=== PATIENT | male | born 1940 | race Caucasian/White ===

== ENCOUNTER → 2018-12-05 | Outpatient (CLI) | payer MEDICARE ==
[~2018-12-05] MED LIST: REGADENOSON 0.4 MG/5 ML SYRINGE ONE
== END | disposition home or self-care (01) ==
LOC: CFH 08:21
PROVIDERS: ATTEND Family Medicine
DX: R94.31 Abnormal electrocardiogram [ECG] [EKG] (principal); I48.0 Paroxysmal atrial fibrillation
CPT/HCPCS: 78452; 93017; A9502; J2785

== ENCOUNTER 2019-10-05 03:54 | Inpatient (IN) | payer MEDICARE ==
[~2019-10-05] VITALS: Ht 193 cm; Wt 70.6 kg
[~2019-10-05 03:54] MED LIST changes: +ACET325T21 PO; +AMLO-150 PO; +AMOX1TAB12 PO; +ATOR40TA78 PO; +CALC500T11 PO; +DOCU-131 PO; +FLEC150T PO; +FURO20TA3 PO; +HYDR-3240 PO; +LISI-167 PO; +LISI40TA PO; +MAGN400T50 PO; +METO25TA35 PO; +MISO200T PO; +OMEP-110 PO; +PHOS250T3 PO; +POTA20TA6 PO; -REGADENOSON 0.4 MG/5 ML SYRINGE ONE; +TAMS-11 PO; +TRIA1TAB3 PO; +WARF2.5T32 PO; +ZONI100C2 PO
[2019-10-05 04:29] LABS: BASOPHILS # (AUTO) 0.03 x10^3/uL (0-0.1); BASOPHILS % (AUTO) 0 % (0-1); EOSINOPHILS # (AUTO) 0.34 x10^3/uL (0-0.4); EOSINOPHILS % (AUTO) 3 % (1-7); LYMPHOCYTES # (AUTO) 1.35 x10^3/uL (1-3.4); LYMPHOCYTES % (AUTO) 12 % (22-44); MD NO; MEAN CORPUSCULAR HEMOGLOBIN 28.9 pg (27.5-34.5); MEAN CORPUSCULAR HGB CONC 32.8 g/dL (33.2-36.2); MEAN PLATELET VOLUME 9.9 fL (7.4-10.4); MONOCYTES # (AUTO) 0.94 x10^3/uL (0.2-0.8); MONOCYTES % (AUTO) 8 % (2-9); NEUTROPHILS # (AUTO) 8.94 x10^3/uL (1.8-6.8); NEUTROPHILS % (AUTO) 77 % (42-75); PLATELET COUNT 127 x10^3/uL (130-400); RED BLOOD COUNT 5.16 x10^6/uL (4.38-5.82); RED CELL DISTRIBUTION WIDTH 12.8 % (9.4-14.8)
[2019-10-05 04:38] LABS: ALBUMIN 3.3 g/dL (3.4-5.0); ANION GAP 8 mmol/L (5-15); CALCIUM 8.4 mg/dL (8.5-10.1); CHLORIDE 102 mmol/L (98-107)
[2019-10-05] MEDS ORDERED: METHOCARBAMOL 750 MG TABLET PO ONE (05:00)
[2019-10-05] MEDS ORDERED: OXYcodone/APAP 5/325MG TABLET PO ONE (05:00)
[2019-10-05] MEDS ORDERED: OXYcodone/APAP 5/325MG TABLET ONE (05:01)
[2019-10-05] MEDS ORDERED: METHOCARBAMOL 750 MG TABLET ONE (05:01)
--- NOTE | 2019-10-05 05:08 | NUR ---
PT BIB EMS WITH C/O HIP PAIN. PT REPORTS FALL DOWN X1 FLIGHT OF STAIRS SATURDAY. PT REPORTS HE HIT HIS HEAD, NO LOC, OR BLEEDING. STATES HE HASNT BEEN ABLE TO WALK SINCE SATURDAY. REPORTS 10/10 HIP PAIN, WITH BODY ACHES. PT DENIES ANY OTHER C/O AT THIS TIME. ALL MONITORING IN PLACE, CALL LIGHT WITHIN REACH. PT PROVIDED BLANKETS FOR COMFORT. MEDICATED PER DEC. IMAGING AND LABS PERFORMED, AWAITING IMAGING READ.
--- NOTE | 2019-10-05 06:02 | NUR ---
PT RESTING ON GURNEY, REPORTS DECREASED PAIN POST MEDICATION. PT DENIES ANY NEEDS AT THIS TIME.
--- NOTE | 2019-10-05 06:50 | NUR ---
REPORT GIVEN TO [facility]. PT [facility]ING [place] [facility], UPDATED ON POC. CALL LIGHT WITHIN REACH, MONITORING IN PLACE, ALL SAFETY MEASURES IN PLACE.
--- NOTE | 2019-10-05 07:58 | NUR ---
PER DR PERAZA PT TO BE ADMITED. WILL HAVE CT PRIOR TO ADMIT. I SPOKE WITH PT SONS AND INFORMED HIM PER PT REQUEST. PT VSS, CALL LIGHT W/I REACH
[2019-10-05] MEDS ORDERED: METHOCARBAMOL 750 MG TABLET PO SCH (12:00)
[2019-10-05] MEDS ORDERED: OXYcodone/APAP 5/325MG TABLET PO PRN (12:00)
[2019-10-05 12:34] LABS: MICROSCOPIC INDICATED
[2019-10-05 12:55] LABS: CULTURE INDICATED? YES
[2019-10-05 12:58] VITALS: BP 174/73
[2019-10-05] MEDS ORDERED: LABETALOL 5MG/ML, 20ML IVPush PRN (14:00)
[2019-10-05] MEDS ORDERED: ONDANSETRON ODT 4 MG PO PRN (14:00)
[2019-10-05] MEDS ORDERED: hydrALAzine 20 MG/ML, 1ML IVPush PRN (14:00)
[2019-10-05] MEDS ORDERED: BISACODYL 10 MG SUPP PR PRN (14:00)
[2019-10-05] MEDS ORDERED: LIDODERM 5% PATCH TD PRN (14:00)
[2019-10-05] MEDS ORDERED: ONDANSETRON 2MG/ML, 2ML IVPush PRN (14:00)
[2019-10-05] MEDS: ZONISAMIDE 50 MG CAPSULE PO SCH (15:43)
[2019-10-05] MEDS: NS + 20MEQ KCL 1,000 ML IV SCH ×2 (15:43→23:59)
[2019-10-05] MEDS: METOPROLOL TARTRATE 25 MG TABLET PO SCH (18:13)
[2019-10-05] MEDS: OXYcodone/APAP 5/325MG TABLET PO PRN (18:13)
[2019-10-05] MEDS: HEPARIN 5,000 UNITS/ML, 1ML SQ SCH (18:21)
[2019-10-05 18:49] VITALS: BP 135/69
[2019-10-05] MEDS: ATORVASTATIN 40 MG TABLET PO SCH (20:16)
[2019-10-05] MEDS: METHOCARBAMOL 750 MG TABLET PO PRN (20:24)
[2019-10-05] MEDS: morphine SULFATE 10 MG/ML, 1ML IVPush PRN (23:59)
[2019-10-06 00:30] VITALS: BP 144/71
[2019-10-06] MEDS: HEPARIN 5,000 UNITS/ML, 1ML SQ SCH ×3 (03:57→20:27)
[2019-10-06] MEDS: METHOCARBAMOL 750 MG TABLET PO PRN ×2 (05:16→17:32)
[2019-10-06] MEDS: METOPROLOL TARTRATE 25 MG TABLET PO SCH ×2 (05:16→17:34)
[2019-10-06] MEDS: OXYcodone/APAP 5/325MG TABLET PO PRN ×2 (05:17→17:34)
[2019-10-06] MEDS: OMEPRAZOLE 20 MG CAPSULE.DR PO SCH (05:18)
[2019-10-06 05:50] LABS: BASOPHILS # (AUTO) 0.06 x10^3/uL (0-0.1); BASOPHILS % (AUTO) 1 % (0-1); EOSINOPHILS # (AUTO) 0.84 x10^3/uL (0-0.4); EOSINOPHILS % (AUTO) 8 % (1-7); LYMPHOCYTES # (AUTO) 2.44 x10^3/uL (1-3.4); LYMPHOCYTES % (AUTO) 24 % (22-44); MD NO; MEAN CORPUSCULAR HEMOGLOBIN 29.5 pg (27.5-34.5); MEAN CORPUSCULAR HGB CONC 32.6 g/dL (33.2-36.2); MEAN CORPUSCULAR VOLUME 90.5 fL (81-97); MEAN PLATELET VOLUME 10.4 fL (7.4-10.4); MONOCYTES # (AUTO) 1.11 x10^3/uL (0.2-0.8); MONOCYTES % (AUTO) 11 % (2-9); NEUTROPHILS # (AUTO) 5.84 x10^3/uL (1.8-6.8); NEUTROPHILS % (AUTO) 57 % (42-75); PLATELET COUNT 118 x10^3/uL (130-400); RED BLOOD COUNT 4.32 x10^6/uL (4.38-5.82); RED CELL DISTRIBUTION WIDTH 13.3 % (9.4-14.8)
[2019-10-06 05:54] LABS: ALANINE AMINOTRANSFERASE 21 U/L (12-78); ALBUMIN 2.6 g/dL (3.4-5.0); ANION GAP 5 mmol/L (5-15); CHLORIDE 108 mmol/L (98-107); CREATININE 1.33 mg/dL (0.7-1.3)
[2019-10-06 05:57] LABS: ALKALINE PHOSPHATASE 105 U/L (45-117); BILIRUBIN,TOTAL 1.3 mg/dL (0.2-1.0); TOTAL PROTEIN 5.5 g/dL (6.4-8.2)
[2019-10-06 07:06] VITALS: BP 116/64
[2019-10-06] MEDS: NS + 20MEQ KCL 1,000 ML IV SCH ×2 (08:03→17:32)
[2019-10-06] MEDS: morphine SULFATE 10 MG/ML, 1ML IVPush PRN ×3 (08:04→23:27)
[2019-10-06] MEDS: ZONISAMIDE 50 MG CAPSULE PO SCH (08:04)
[2019-10-06 12:59] VITALS: BP 132/76
[2019-10-06 19:33] VITALS: BP 156/71
[2019-10-06] MEDS: ATORVASTATIN 40 MG TABLET PO SCH (20:27)
[2019-10-07 01:46] VITALS: BP 152/70
[2019-10-07] MEDS: OXYcodone/APAP 5/325MG TABLET PO PRN ×4 (05:30→20:11)
[2019-10-07] MEDS: METHOCARBAMOL 750 MG TABLET PO PRN (05:30)
[2019-10-07] MEDS: OMEPRAZOLE 20 MG CAPSULE.DR PO SCH (05:31)
[2019-10-07] MEDS: METOPROLOL TARTRATE 25 MG TABLET PO SCH ×2 (05:31→17:52)
[2019-10-07] MEDS: HEPARIN 5,000 UNITS/ML, 1ML SQ SCH ×3 (05:31→20:04)
[2019-10-07] MEDS: DOCUSATE 100 MG CAPSULE PO PRN (05:36)
[2019-10-07 06:03] LABS: BASOPHILS # (AUTO) 0.03 x10^3/uL (0-0.1); BASOPHILS % (AUTO) 0 % (0-1); EOSINOPHILS # (AUTO) 0.72 x10^3/uL (0-0.4); EOSINOPHILS % (AUTO) 7 % (1-7); LYMPHOCYTES # (AUTO) 1.33 x10^3/uL (1-3.4); LYMPHOCYTES % (AUTO) 13 % (22-44); MD NO; MEAN CORPUSCULAR HEMOGLOBIN 29.2 pg (27.5-34.5); MEAN CORPUSCULAR HGB CONC 32.5 g/dL (33.2-36.2); MEAN PLATELET VOLUME 10.7 fL (7.4-10.4); MONOCYTES # (AUTO) 0.99 x10^3/uL (0.2-0.8); MONOCYTES % (AUTO) 10 % (2-9); NEUTROPHILS # (AUTO) 7.34 x10^3/uL (1.8-6.8); NEUTROPHILS % (AUTO) 71 % (42-75); PLATELET COUNT 130 x10^3/uL (130-400); RED BLOOD COUNT 4.25 x10^6/uL (4.38-5.82); RED CELL DISTRIBUTION WIDTH 13.3 % (9.4-14.8)
[2019-10-07 06:09] LABS: ALBUMIN 2.5 g/dL (3.4-5.0); CALCIUM 7.8 mg/dL (8.5-10.1); CHLORIDE 110 mmol/L (98-107)
[2019-10-07 06:15] LABS: ALANINE AMINOTRANSFERASE 18 U/L (12-78); ALKALINE PHOSPHATASE 106 U/L (45-117); ANION GAP 8 mmol/L (5-15); BILIRUBIN,TOTAL 1.4 mg/dL (0.2-1.0); CREATININE 1.17 mg/dL (0.7-1.3); TOTAL PROTEIN 5.4 g/dL (6.4-8.2)
[2019-10-07] MEDS: NS + 20MEQ KCL 1,000 ML IV SCH ×2 (06:19→20:04)
[2019-10-07 06:52] VITALS: BP 129/55
[2019-10-07] MEDS: ZONISAMIDE 50 MG CAPSULE PO SCH (08:36)
[2019-10-07 13:15] VITALS: BP 143/55
[2019-10-07 18:53] VITALS: BP 188/69
[2019-10-07] MEDS: ATORVASTATIN 40 MG TABLET PO SCH (20:04)
[2019-10-07 20:12] VITALS: BP 167/73
[2019-10-08 00:19] VITALS: BP 148/74
[2019-10-08] MEDS: HEPARIN 5,000 UNITS/ML, 1ML SQ SCH ×3 (03:27→19:16)
[2019-10-08] MEDS: OXYcodone/APAP 5/325MG TABLET PO PRN ×2 (04:13→08:26)
[2019-10-08] MEDS: OMEPRAZOLE 20 MG CAPSULE.DR PO SCH (05:40)
[2019-10-08] MEDS: METOPROLOL TARTRATE 25 MG TABLET PO SCH ×2 (05:41→19:28)
[2019-10-08 05:42] VITALS: BP 147/66
[2019-10-08 06:29] LABS: BASOPHILS # (AUTO) 0.03 x10^3/uL (0-0.1); BASOPHILS % (AUTO) 0 % (0-1); EOSINOPHILS # (AUTO) 0.74 x10^3/uL (0-0.4); EOSINOPHILS % (AUTO) 7 % (1-7); LYMPHOCYTES # (AUTO) 1.24 x10^3/uL (1-3.4); LYMPHOCYTES % (AUTO) 11 % (22-44); MD NO; MEAN CORPUSCULAR HEMOGLOBIN 29.4 pg (27.5-34.5); MEAN CORPUSCULAR HGB CONC 32.7 g/dL (33.2-36.2); MEAN CORPUSCULAR VOLUME 89.9 fL (81-97); MEAN PLATELET VOLUME 10.5 fL (7.4-10.4); MONOCYTES # (AUTO) 1.04 x10^3/uL (0.2-0.8); MONOCYTES % (AUTO) 9 % (2-9); NEUTROPHILS # (AUTO) 8.21 x10^3/uL (1.8-6.8); NEUTROPHILS % (AUTO) 73 % (42-75); PLATELET COUNT 160 x10^3/uL (130-400); RED CELL DISTRIBUTION WIDTH 13.4 % (9.4-14.8)
[2019-10-08 06:36] LABS: ANION GAP 8 mmol/L (5-15); CALCIUM 7.7 mg/dL (8.5-10.1); CHLORIDE 109 mmol/L (98-107); CREATININE 1.18 mg/dL (0.7-1.3)
[2019-10-08 07:45] VITALS: BP 155/69
[2019-10-08] MEDS: LISINOPRIL 10 MG TABLET PO SCH (08:26)
[2019-10-08] MEDS: METHOCARBAMOL 750 MG TABLET PO PRN ×2 (08:26→19:22)
[2019-10-08] MEDS: ZONISAMIDE 50 MG CAPSULE PO SCH (08:26)
[2019-10-08] MEDS: NS + 20MEQ KCL 1,000 ML IV SCH (08:26)
[2019-10-08 13:20] VITALS: BP 145/77
[2019-10-08 18:38] VITALS: BP 184/76
[2019-10-08] MEDS: ATORVASTATIN 40 MG TABLET PO SCH (19:16)
[2019-10-09 00:04] VITALS: BP 156/62
[2019-10-09] MEDS: HEPARIN 5,000 UNITS/ML, 1ML SQ SCH (03:51)
[2019-10-09 05:37] VITALS: BP 156/69
[2019-10-09] MEDS: OMEPRAZOLE 20 MG CAPSULE.DR PO SCH (05:37)
[2019-10-09] MEDS: METOPROLOL TARTRATE 25 MG TABLET PO SCH ×2 (05:37→18:11)
[2019-10-09 07:18] VITALS: BP 155/58
[2019-10-09] MEDS: LISINOPRIL 10 MG TABLET PO SCH (08:27)
[2019-10-09] MEDS: ZONISAMIDE 50 MG CAPSULE PO SCH (08:28)
[2019-10-09] MEDS: DOCUSATE 100 MG CAPSULE PO PRN (08:28)
[2019-10-09] MEDS: POLYETHYLENE GLYCOL 17 GM PACKET PO PRN (08:28)
[2019-10-09] MEDS: METHOCARBAMOL 750 MG TABLET PO PRN ×2 (08:34→20:07)
[2019-10-09] MEDS: OXYcodone/APAP 5/325MG TABLET PO PRN (12:35)
[2019-10-09 15:13] VITALS: BP 108/53
[2019-10-09 18:35] VITALS: BP 159/76
[2019-10-09] MEDS: ATORVASTATIN 40 MG TABLET PO SCH (20:04)
[2019-10-10 02:16] VITALS: BP 134/71
[2019-10-10] MEDS: METOPROLOL TARTRATE 25 MG TABLET PO SCH ×2 (05:17→17:56)
[2019-10-10] MEDS: OMEPRAZOLE 20 MG CAPSULE.DR PO SCH (05:17)
[2019-10-10] MEDS: METHOCARBAMOL 750 MG TABLET PO PRN ×2 (05:17→21:09)
[2019-10-10 06:40] VITALS: BP 158/77
[2019-10-10] MEDS: POLYETHYLENE GLYCOL 17 GM PACKET PO PRN (07:59)
[2019-10-10] MEDS: LISINOPRIL 10 MG TABLET PO SCH (07:59)
[2019-10-10] MEDS: ZONISAMIDE 50 MG CAPSULE PO SCH (07:59)
[2019-10-10 11:51] VITALS: BP 161/75
[2019-10-10 17:53] VITALS: BP 171/68
[2019-10-10 18:45] VITALS: BP 144/62
[2019-10-10] MEDS: DOCUSATE 100 MG CAPSULE PO PRN (21:09)
[2019-10-10] MEDS: ACETAMINOPHEN 325 MG TABLET PO PRN (21:09)
[2019-10-10] MEDS: OXYcodone/APAP 5/325MG TABLET PO PRN (21:10)
[2019-10-10] MEDS: ATORVASTATIN 40 MG TABLET PO SCH (21:10)
[2019-10-11] VITALS (7 sets, daily range): BP systolic 106–174; BP diastolic 58–83
[2019-10-11] MEDS: OXYcodone/APAP 5/325MG TABLET PO PRN ×2 (03:22→13:24)
[2019-10-11] MEDS: OMEPRAZOLE 20 MG CAPSULE.DR PO SCH (06:04)
[2019-10-11] MEDS: METHOCARBAMOL 750 MG TABLET PO PRN ×2 (06:04→19:59)
[2019-10-11] MEDS: METOPROLOL TARTRATE 25 MG TABLET PO SCH ×2 (06:05→17:37)
[2019-10-11] MEDS: ZONISAMIDE 50 MG CAPSULE PO SCH (08:54)
[2019-10-11] MEDS: LISINOPRIL 10 MG TABLET PO SCH (09:03)
[2019-10-11] MEDS: HEPARIN 5,000 UNITS/ML, 1ML SQ SCH ×2 (09:46→17:36)
[2019-10-11] MEDS: DOCUSATE 100 MG CAPSULE PO PRN ×2 (09:51→19:59)
[2019-10-11] MEDS: POLYETHYLENE GLYCOL 17 GM PACKET PO PRN (09:51)
[2019-10-11] MEDS: ATORVASTATIN 40 MG TABLET PO SCH (19:59)
[2019-10-11] MEDS: ACETAMINOPHEN 325 MG TABLET PO PRN (19:59)
[2019-10-12 00:59] VITALS: BP 130/66
[2019-10-12] MEDS: HEPARIN 5,000 UNITS/ML, 1ML SQ SCH ×3 (01:57→17:33)
[2019-10-12] MEDS: METOPROLOL TARTRATE 25 MG TABLET PO SCH ×2 (06:00→17:33)
[2019-10-12] MEDS: OMEPRAZOLE 20 MG CAPSULE.DR PO SCH (06:22)
[2019-10-12 06:27] VITALS: BP 124/62
[2019-10-12 07:00] VITALS: BP 120/61
[2019-10-12] MEDS: ACETAMINOPHEN 325 MG TABLET PO PRN ×2 (09:18→20:47)
[2019-10-12] MEDS: LISINOPRIL 10 MG TABLET PO SCH (09:18)
[2019-10-12] MEDS: ZONISAMIDE 50 MG CAPSULE PO SCH (09:18)
[2019-10-12 12:20] VITALS: BP 137/68
[2019-10-12] MEDS: OXYcodone/APAP 5/325MG TABLET PO PRN (13:50)
[2019-10-12 19:08] VITALS: BP 137/63
[2019-10-12] MEDS: ATORVASTATIN 40 MG TABLET PO SCH (20:31)
[2019-10-12] MEDS: METHOCARBAMOL 750 MG TABLET PO PRN (20:46)
[2019-10-13] MEDS: HEPARIN 5,000 UNITS/ML, 1ML SQ SCH ×3 (01:30→17:43)
[2019-10-13 01:54] VITALS: BP 131/67
[2019-10-13] MEDS: OMEPRAZOLE 20 MG CAPSULE.DR PO SCH (05:55)
[2019-10-13] MEDS: METOPROLOL TARTRATE 25 MG TABLET PO SCH ×2 (05:59→17:43)
[2019-10-13 06:00] VITALS: BP 159/76
[2019-10-13 07:04] VITALS: BP 131/67
[2019-10-13] MEDS: METHOCARBAMOL 750 MG TABLET PO PRN ×2 (09:38→17:43)
[2019-10-13] MEDS: LISINOPRIL 10 MG TABLET PO SCH (09:39)
[2019-10-13] MEDS: ZONISAMIDE 50 MG CAPSULE PO SCH (09:39)
[2019-10-13] MEDS: ACETAMINOPHEN 325 MG TABLET PO PRN (09:39)
[2019-10-13 12:25] VITALS: BP 116/64
[2019-10-13] MEDS: OXYcodone/APAP 5/325MG TABLET PO PRN (13:42)
[2019-10-13] MEDS: ATORVASTATIN 40 MG TABLET PO SCH (19:59)
[2019-10-13 20:16] VITALS: BP 124/58
[2019-10-13] MEDS ORDERED: MIRTAZAPINE 15 MG TABLET ONE (20:54)
[2019-10-14] MEDS: HEPARIN 5,000 UNITS/ML, 1ML SQ SCH ×3 (01:52→17:47)
[2019-10-14 01:53] VITALS: BP 134/68
[2019-10-14] MEDS: OMEPRAZOLE 20 MG CAPSULE.DR PO SCH (06:00)
[2019-10-14] MEDS: METOPROLOL TARTRATE 25 MG TABLET PO SCH ×2 (06:00→17:49)
[2019-10-14 07:08] VITALS: BP 113/53
[2019-10-14] MEDS: ZONISAMIDE 50 MG CAPSULE PO SCH (09:31)
[2019-10-14] MEDS: LISINOPRIL 10 MG TABLET PO SCH (09:32)
[2019-10-14] MEDS: OXYcodone/APAP 5/325MG TABLET PO PRN ×2 (10:16→17:49)
[2019-10-14] MEDS: METHOCARBAMOL 750 MG TABLET PO PRN ×2 (10:16→17:47)
[2019-10-14 14:06] VITALS: BP 135/64
[2019-10-14] MEDS: POLYETHYLENE GLYCOL 17 GM PACKET PO PRN (17:47)
[2019-10-14 19:15] VITALS: BP 138/56
[2019-10-14] MEDS: ATORVASTATIN 40 MG TABLET PO SCH (20:19)
[2019-10-15 00:55] VITALS: BP 137/63
[2019-10-15] MEDS: HEPARIN 5,000 UNITS/ML, 1ML SQ SCH ×3 (01:30→17:25)
[2019-10-15] MEDS: OMEPRAZOLE 20 MG CAPSULE.DR PO SCH (06:35)
[2019-10-15] MEDS: METOPROLOL TARTRATE 25 MG TABLET PO SCH ×2 (06:35→17:25)
[2019-10-15 08:50] VITALS: BP 155/76
[2019-10-15] MEDS: ACETAMINOPHEN 325 MG TABLET PO PRN (08:59)
[2019-10-15] MEDS: ZONISAMIDE 50 MG CAPSULE PO SCH (08:59)
[2019-10-15] MEDS: LISINOPRIL 10 MG TABLET PO SCH (08:59)
[2019-10-15] MEDS: OXYcodone/APAP 5/325MG TABLET PO PRN (13:37)
[2019-10-15] MEDS: METHOCARBAMOL 750 MG TABLET PO PRN (13:38)
[2019-10-15 14:40] VITALS: BP 156/68
[2019-10-15 19:12] VITALS: BP 137/58
[2019-10-15] MEDS: ATORVASTATIN 40 MG TABLET PO SCH (20:22)
[2019-10-16] MEDS: HEPARIN 5,000 UNITS/ML, 1ML SQ SCH ×3 (00:23→17:34)
[2019-10-16 02:22] VITALS: BP 122/63
[2019-10-16] MEDS: METOPROLOL TARTRATE 25 MG TABLET PO SCH ×2 (06:20→17:33)
[2019-10-16] MEDS: OMEPRAZOLE 20 MG CAPSULE.DR PO SCH (06:20)
[2019-10-16 09:21] VITALS: BP 157/72
[2019-10-16] MEDS: ZONISAMIDE 50 MG CAPSULE PO SCH (09:23)
[2019-10-16] MEDS: LISINOPRIL 20 MG TABLET PO SCH (09:23)
[2019-10-16 13:43] VITALS: BP 129/74
[2019-10-16] MEDS: OXYcodone/APAP 5/325MG TABLET PO PRN (14:47)
[2019-10-16] MEDS: METHOCARBAMOL 750 MG TABLET PO PRN (17:39)
[2019-10-16 18:48] VITALS: BP 139/65
[2019-10-16] MEDS: ATORVASTATIN 40 MG TABLET PO SCH (20:25)
[2019-10-17] MEDS: HEPARIN 5,000 UNITS/ML, 1ML SQ SCH ×2 (01:23→08:20)
[2019-10-17 03:07] VITALS: BP 138/64
[2019-10-17] MEDS: METOPROLOL TARTRATE 25 MG TABLET PO SCH ×2 (07:00→17:27)
[2019-10-17] MEDS: OMEPRAZOLE 20 MG CAPSULE.DR PO SCH (07:00)
[2019-10-17 07:31] VITALS: BP 154/68
[2019-10-17] MEDS: ZONISAMIDE 50 MG CAPSULE PO SCH (08:20)
[2019-10-17] MEDS: LISINOPRIL 20 MG TABLET PO SCH (08:20)
[2019-10-17 13:17] VITALS: BP 154/67
[2019-10-17] MEDS: POLYETHYLENE GLYCOL 17 GM PACKET PO PRN (17:27)
[2019-10-17] MEDS: DOCUSATE 100 MG CAPSULE PO PRN (17:27)
[2019-10-17 19:52] VITALS: BP 141/72
[2019-10-17] MEDS: METHOCARBAMOL 750 MG TABLET PO PRN (21:09)
[2019-10-17] MEDS: ATORVASTATIN 40 MG TABLET PO SCH (21:10)
[2019-10-17] MEDS: ACETAMINOPHEN 325 MG TABLET PO PRN (21:10)
[2019-10-17] MEDS: ENOXAPARIN 40 MG/0.4 ML SQ SCH (21:11)
[2019-10-18 01:49] VITALS: BP 130/65
[2019-10-18] MEDS: OMEPRAZOLE 20 MG CAPSULE.DR PO SCH (05:46)
[2019-10-18] MEDS: METOPROLOL TARTRATE 25 MG TABLET PO SCH ×2 (05:46→17:09)
[2019-10-18 06:43] VITALS: BP 145/71
[2019-10-18] MEDS: LISINOPRIL 20 MG TABLET PO SCH (08:25)
[2019-10-18] MEDS: ZONISAMIDE 50 MG CAPSULE PO SCH (08:25)
[2019-10-18] MEDS: METHOCARBAMOL 750 MG TABLET PO PRN (11:05)
[2019-10-18] MEDS: ACETAMINOPHEN 325 MG TABLET PO PRN (11:05)
[2019-10-18 12:13] VITALS: BP 110/58
[2019-10-18] MEDS: ATORVASTATIN 40 MG TABLET PO SCH (20:15)
[2019-10-18] MEDS: ENOXAPARIN 40 MG/0.4 ML SQ SCH (20:16)
[2019-10-18 20:23] VITALS: BP 115/52
[2019-10-19 02:00] VITALS: BP 123/51
[2019-10-19] MEDS: METOPROLOL TARTRATE 25 MG TABLET PO SCH ×2 (05:55→18:35)
[2019-10-19] MEDS: OMEPRAZOLE 20 MG CAPSULE.DR PO SCH (05:56)
[2019-10-19 07:05] VITALS: BP 116/60
[2019-10-19] MEDS: LISINOPRIL 20 MG TABLET PO SCH (09:16)
[2019-10-19] MEDS: ZONISAMIDE 50 MG CAPSULE PO SCH (09:17)
[2019-10-19] MEDS: METHOCARBAMOL 750 MG TABLET PO PRN (11:23)
[2019-10-19 12:10] VITALS: BP 123/72
[2019-10-19] MEDS ORDERED: IBUPROFEN 600 MG TABLET PO PRN (14:30)
[2019-10-19 20:03] VITALS: BP 133/66
[2019-10-19] MEDS: ENOXAPARIN 40 MG/0.4 ML SQ SCH (21:18)
[2019-10-19] MEDS: ATORVASTATIN 40 MG TABLET PO SCH (21:18)
[2019-10-20 02:12] VITALS: BP 130/58
[2019-10-20 06:21] VITALS: BP 116/64
[2019-10-20] MEDS: OMEPRAZOLE 20 MG CAPSULE.DR PO SCH (06:23)
[2019-10-20] MEDS: METOPROLOL TARTRATE 25 MG TABLET PO SCH ×2 (06:24→18:26)
[2019-10-20] MEDS: ZONISAMIDE 50 MG CAPSULE PO SCH (10:36)
[2019-10-20] MEDS: LISINOPRIL 20 MG TABLET PO SCH (10:37)
[2019-10-20] MEDS: METHOCARBAMOL 750 MG TABLET PO PRN (13:49)
[2019-10-20] MEDS: ACETAMINOPHEN 325 MG TABLET PO PRN (13:49)
[2019-10-20 17:05] VITALS: BP 138/65
[2019-10-20 20:07] VITALS: BP 137/63
[2019-10-20] MEDS: ATORVASTATIN 40 MG TABLET PO SCH (20:16)
[2019-10-20] MEDS: ENOXAPARIN 40 MG/0.4 ML SQ SCH (20:16)
[2019-10-21 01:25] VITALS: BP 109/66
[2019-10-21 05:32] VITALS: BP 110/52
[2019-10-21] MEDS: OMEPRAZOLE 20 MG CAPSULE.DR PO SCH (05:34)
[2019-10-21] MEDS: METOPROLOL TARTRATE 25 MG TABLET PO SCH ×2 (05:34→17:26)
[2019-10-21 06:45] VITALS: BP 113/67
[2019-10-21] MEDS: LISINOPRIL 20 MG TABLET PO SCH (08:33)
[2019-10-21] MEDS: ZONISAMIDE 50 MG CAPSULE PO SCH (08:33)
[2019-10-21 12:56] VITALS: BP 124/64
[2019-10-21 19:42] VITALS: BP 156/68
[2019-10-21] MEDS: ENOXAPARIN 40 MG/0.4 ML SQ SCH (21:18)
[2019-10-21] MEDS: ATORVASTATIN 40 MG TABLET PO SCH (21:18)
[2019-10-22 01:16] VITALS: BP 127/71
[2019-10-22 06:02] VITALS: BP 134/78
[2019-10-22] MEDS: OMEPRAZOLE 20 MG CAPSULE.DR PO SCH (06:08)
[2019-10-22] MEDS: METOPROLOL TARTRATE 25 MG TABLET PO SCH ×2 (06:08→17:32)
[2019-10-22] MEDS: ZONISAMIDE 50 MG CAPSULE PO SCH (09:30)
[2019-10-22] MEDS: LISINOPRIL 20 MG TABLET PO SCH (09:31)
[2019-10-22 13:55] VITALS: BP 153/71
[2019-10-22 19:03] VITALS: BP 119/66
[2019-10-22] MEDS: ATORVASTATIN 40 MG TABLET PO SCH (20:07)
[2019-10-22] MEDS: ENOXAPARIN 40 MG/0.4 ML SQ SCH (20:08)
[2019-10-23 01:07] VITALS: BP 127/75
[2019-10-23 05:20] LABS: CREATININE 1.43 mg/dL (0.7-1.3)
[2019-10-23 06:22] VITALS: BP 126/60
[2019-10-23] MEDS: METOPROLOL TARTRATE 25 MG TABLET PO SCH (06:22)
[2019-10-23] MEDS: OMEPRAZOLE 20 MG CAPSULE.DR PO SCH (06:22)
[2019-10-23 07:07] VITALS: BP 125/72
[2019-10-23] MEDS: LISINOPRIL 20 MG TABLET PO SCH (08:05)
[2019-10-23] MEDS: ZONISAMIDE 50 MG CAPSULE PO SCH (08:05)
[2019-10-23] MEDS ORDERED: METH750T2 PO (13:12)
[2019-10-23] MEDS ORDERED: OXYcodone/APAP 5/325MG PO (13:12)
[2019-10-23] MEDS ORDERED: LISI-170 PO (13:12)
[2019-10-23] MEDS ORDERED: ZONI50CA2 PO (13:12)
[2019-10-23] MEDS ORDERED: DOCU-131 PO (13:12)
[2019-10-23] MEDS ORDERED: LIDO700A20 TD (13:12)
[2019-10-23 13:28] VITALS: BP 125/72
[2019-10-23] MEDS ORDERED: OXYC-302 PO (16:48)
== END 2019-10-23 17:01 | disposition home health service (06) | DRG 551 ==
LOC: ED 05:16 → EDIP 08:05 → 3N 09:07 → DCLOUNGE 10-23 16:39
PROVIDERS: ADMIT Internal Medicine; ATTEND Hospitalist
DX: S32.10XA Unspecified fracture of sacrum, initial encounter for closed fracture (principal); N17.0 Acute kidney failure with tubular necrosis; S32.591A Other specified fracture of right pubis, initial encounter for closed fracture; E87.1 Hypo-osmolality and hyponatremia; D68.69 Other thrombophilia; I48.91 Unspecified atrial fibrillation; D69.6 Thrombocytopenia, unspecified; D72.829 Elevated white blood cell count, unspecified; E78.5 Hyperlipidemia, unspecified; E86.0 Dehydration; E87.6 Hypokalemia; F12.90 Cannabis use, unspecified, uncomplicated; G89.11 Acute pain due to trauma; I10 Essential (primary) hypertension; I25.10 Atherosclerotic heart disease of native coronary artery without angina pectoris; I48.0 Paroxysmal atrial fibrillation; I73.9 Peripheral vascular disease, unspecified; M19.90 Unspecified osteoarthritis, unspecified site; Z66 Do not resuscitate; R56.9 Unspecified convulsions; W01.0XXA Fall on same level from slipping, tripping and stumbling without subsequent striking against object, initial encounter; Y93.89 Activity, other specified; Y92.89 Other specified places as the place of occurrence of the external cause; Y99.8 Other external cause status; Z98.1 Arthrodesis status; Z91.81 History of falling; Z91.14 Patient's other noncompliance with medication regimen; Z87.891 Personal history of nicotine dependence; Z82.49 Family history of ischemic heart disease and other diseases of the circulatory system; Z79.01 Long term (current) use of anticoagulants; Z74.01 Bed confinement status
CPT/HCPCS: 36415; 71045; 72110; 72170; 72192; 72220; 80048; 80053; 81001; 82040; 82565; 85025; 87086; 99285; G0378; J1644; J1650; J3480; J0360; J2270

== ENCOUNTER → 2020-05-23 | Outpatient (CLI) | payer MEDICARE ==
[~2020-05-23] MED LIST changes: +ACET-2274 PO; -ACET325T21 PO; +LIDO700A20 TD; +LISI-170 PO; +METH750T2 PO; +OXYC-302 PO; +OXYcodone/APAP 5/325MG PO; -ZONI100C2 PO; +ZONI100C29 PO; +ZONI50CA10 PO
== END | disposition home or self-care (01) ==
LOC: CFH 10:05
PROVIDERS: ATTEND Internal Medicine Cardiovascular Disease
DX: I10 Essential (primary) hypertension (principal); E78.5 Hyperlipidemia, unspecified; I48.0 Paroxysmal atrial fibrillation; I67.9 Cerebrovascular disease, unspecified; I73.9 Peripheral vascular disease, unspecified; R94.31 Abnormal electrocardiogram [ECG] [EKG]
CPT/HCPCS: 71046